=== PATIENT | female | born 1935 | race Caucasian/White ===

== ENCOUNTER 2018-01-03 14:24 | Inpatient (IN) | payer MEDICARE, BC ==
[~2018-01-03] VITALS: Ht 160 cm; Wt 91.2 kg
[~2018-01-03 14:24] MED LIST: ALBUTEROL INH; ALBUTEROL2.5 MG/31 INH; ASPIRIN EC81 M1 PO; AVELOX 400 MG400 MG OR; BACTRIM DS TAB1 EACH PO; CALCIUM 600 +1 EAC1 PO; COZAAR 50 MG TA50 M1 PO; FISH OIL 1,001000 M2 PO; FISHOIL PO; FML 0.1% OP; K-DUR 20 MEQ T20 MEQ PO; LEVAQUIN 500 M500 M2 PO; MEDROLDOSEPACK PO; MIDAMOR 5MG TABL5 M1 PO; MULTIVITAMINS PO; OXYBUTYNIN 5 MG5 M1 PO; SIMVASTATIN40 MG PO; TAMIFLU75 MG PO; VICODIN 5-5001 EACH PO; VITAMIN D-32000 UNIT PO; VITAMIN E400 UNIT PO; VITAMINC500 PO; ZPAK PO
[2018-01-03 14:33] VITALS: BP 179/83
[2018-01-03] MEDS ORDERED: CRESTOR5 MG PO (14:42)
[2018-01-03] MEDS ORDERED: LASIX 20 MG TAB20 MG PO (14:44)
[2018-01-03] MEDS ORDERED: CELEXA10 MG PO (14:44)
[2018-01-03 15:42] LABS: ABSOLUTE EOSINOPHILS 0.1 thou/uL (0.0-0.7); ABSOLUTE LYMPHOCYTES 1.9 thou/uL (0.8-5.3); ABSOLUTE MONOCYTES 0.5 thou/uL (0.0-1.2); ABSOLUTE NEUTROPHILS 3.4 thou/uL (1.6-8.1); BASOPHILS 0.3 %; EOSINOPHILS 1.6 %; HEMATOCRIT 41.8 % (37.0-47.0); HEMOGLOBIN 14.2 gm/dL (12.0-15.0); MCH 31.9 pg (26.0-34.0); MCHC 33.9 g/dL (28.0-37.0); MCV 94.2 fL (80.0-100.0); MONOCYTES 8.7 %; MPV 8.1 fl. (7.2-11.1); NUCLEATED RBCS 0 /100WBC; PLATELET COUNT* 180 thou/uL (150-400); POLYS 57.4 %; RBC 4.44 mil/uL (4.20-5.00); RDW-CV 13.1 % (10.5-14.5)
[2018-01-03 15:51] LABS: APTT 26.1 Seconds (25.0-31.3); INR 1.1; PROTIME 10.7 Seconds (9.20-11.50)
[2018-01-03 15:55] LABS: ANION GAP 6 mmol/L (7-16); BUN 13 mg/dL (7-18); CALCIUM 9.4 mg/dL (8.5-10.1); CHLORIDE 101 mmol/L (98-107); CO2 31 mmol/L (21-32); CREATININE 0.7 mg/dL (0.6-1.3); GLUCOSE 92 mg/dL (70-99); POTASSIUM 3.5 mmol/L (3.5-5.1); SODIUM 138 mmol/L (136-145)
[2018-01-03 16:07] LABS: ALKALINE PHOSPHATASE 57 U/L (46-116); SGOT 31 U/L (15-37); SGPT 25 U/L (30-65); TOTAL BILIRUBIN 0.4 mg/dL (<0.1-1.0); TOTAL PROTEIN 7.9 g/dL (6.4-8.2); TROPONIN-I LEVEL <0.06 ng/mL (<0.06)
[2018-01-03 17:12] LABS: URINE BILIRUBIN NEGATIVE (Negative); URINE BLOOD NEGATIVE (Negative); URINE CLARITY CLEAR; URINE COLOR YELLOW; URINE GLUCOSE-RANDOM NEGATIVE (Negative); URINE KETONES NEGATIVE (Negative); URINE LEUKOCYTES-REFLEX NEGATIVE (Negative); URINE NITRITE-REFLEX NEGATIVE (Negative); URINE PROTEIN NEGATIVE (Negative); URINE UROBILINOGEN 0.2 E.U./dl (0.2-1.0)
[2018-01-03 20:21] VITALS: BP 169/78
[2018-01-03 21:00] VITALS: BP 150/74
[2018-01-04] VITALS: BP 152/68
[2018-01-04 03:31] VITALS: BP 133/62
[2018-01-04 05:21] LABS: ABSOLUTE EOSINOPHILS 0.1 thou/uL (0.0-0.7); ABSOLUTE LYMPHOCYTES 1.7 thou/uL (0.8-5.3); ABSOLUTE MONOCYTES 0.5 thou/uL (0.0-1.2); ABSOLUTE NEUTROPHILS 2.6 thou/uL (1.6-8.1); BASOPHILS 0.5 %; EOSINOPHILS 2.2 %; HEMATOCRIT 41.2 % (37.0-47.0); HEMOGLOBIN 13.9 gm/dL (12.0-15.0); LYMPHOCYTES 33.8 %; MCH 31.9 pg (26.0-34.0); MCHC 33.6 g/dL (28.0-37.0); MCV 94.7 fL (80.0-100.0); MONOCYTES 10.1 %; MPV 8.3 fl. (7.2-11.1); NUCLEATED RBCS 0 /100WBC; PLATELET COUNT* 161 thou/uL (150-400); POLYS 53.4 %; RBC 4.35 mil/uL (4.20-5.00); RDW-CV 13.4 % (10.5-14.5); WBC 4.9 thou/uL (4.0-11.0)
[2018-01-04 05:40] LABS: CALCIUM 8.5 mg/dL (8.5-10.1); CREATININE 0.6 mg/dL (0.6-1.3); POTASSIUM 3.5 mmol/L (3.5-5.1)
[2018-01-04 08:13] VITALS: BP 154/63
[2018-01-04 11:00] VITALS: BP 150/87
[2018-01-04 15:00] VITALS: BP 124/53
[2018-01-04 20:00] VITALS: BP 155/62
--- NOTE | 2018-01-04 20:24 | CON ---
[address] [address] CONSULTATION Name: HALIETAM Room: [address] IN .R.#: [id number] Admission: 01/03/18 Attend Phys: Marcus Flores MD Discharge: Date of : 31 Report #: [id number] THIS REPORT FOR: //name// CC: Marcus Rogersrina Nick DATE OF SERVICE: 01/04/2018 HISTORY OF PRESENT ILLNESS: This is an 82-year-old female patient who was evaluated by me because of an episode of amnesia. She lives by herself. She was at home. She watered her plants. She remember watering some of them, but not the other one. She put her hose back and she does not remember anything about it. She came to herself after a few hours. She was having an accompanying severe headache at that time. She also noticed a bump on her head. All of it has become better. She never had this kind of episode before. REVIEW OF SYSTEMS: Indicates that this patient has a history of some bronchitis. She takes some medication like citalopram, but she does not feel depressed. She denies any history of diabetes or hypertension. She is not complaining of any new visual, ENT, cardiac, respiratory, GI, , musculoskeletal, constitutional, dermatological, hematological, psychiatric, throat or allergic symptom associated with present symptomatology. PAST MEDICAL HISTORY: Negative for this kind of episode. FAMILY HISTORY: Negative for early age stroke. SOCIAL HISTORY: She does not drink alcohol or smoke. PHYSICAL EXAMINATION: Indicate that this patient is alert, responsive, able to follow simple and complex command. Her speech, concentration, fund of knowledge and memory is at her baseline. Cranial nerve examination 2-12 is unremarkable. Strength, sensation, reflexes and tones are symmetrical. There is no cerebellar sign. I could not have a very good look at the patient's fundus. There is no meningeal sign. There is no carotid bruit. She is a reasonably well-developed individual who does not have any dysmorphic features of eyes, ears and face. Her visions and hearing look adequate. Her pulses are palpable. She has no edema, cyanosis or jaundice. Cardiac examination shows no atrial fibrillation. No respiratory difficulty or rhonchi was noticed. She has no thyroid mass. Her blood pressure is 133/62, respiration is 16, pulse is 60, temperature is 98. LABORATORY DATA: Indicate a white count of 4.9 and normal sodium. She did have a CT scan of the head and C-spine, CT scan of the [place] [address] CONSULTATION Name: TAM AMBROSE Radha Room: [address] IN [facility].#: [id number] Admission: 01/03/18 Attend Phys: Marcus Flroes MD Discharge: Date of : 31 Report #: [id number] IMPRESSION: This patient's symptoms are probably secondary to transient global amnesia. History is somewhat unusual because she had headache with it and she had a bump on her head. Because of that, other differentials including concussion or any OPERATIONS ADVISOR pathology need to be considered. I will suggest some further workup in this patient and if that workup is negative, mainly watch her and see if it happens again. I discussed that aspect with this patient and she wants to follow this plan. Her last LDL was high and we will repeat it and see if that needs any treatment, although her HDL was pretty good. RECOMMENDATIONS: 1. MRI. 2. MRA. 3. EEG. 4. Repeat blood workup. 5. Just observe her for the time being, but will suggest putting her on a small dose of aspirin for the time being. Thank you very much for this referral and we will follow this patient along with you. <ELECTRONICALLY SIGNED> By: Rahul Ayala MD 01/04/184 0751 [id number] Ayala MD /nt
[2018-01-05] VITALS: BP 127/51
[2018-01-05 02:51] VITALS: BP 147/53
[2018-01-05 08:45] VITALS: BP 152/77
--- NOTE | 2018-01-05 09:39 | EKG ---
[place] [address] ELECTROCARDIOGRAM REPORT Name: HALIETAM Room: [address] IN [facility]#: [id number] Admission: 01/03/18 Attend Phys: Marcus Flores MD Discharge: Date of : 33 Report #: [id number] THIS REPORT FOR: //name// [facility] ED Test Date: 2018-01-03 Test Time: 15:34:36 Pat Name: TAM AMBROSE Department: Room: Gender: Exhibition Designer: Fred ADEN : 1935 Requested By: Rosalva Herron Order Number: [id number] MD: Eber Erazo Measurements Intervals [place] Rate: 56 P: 46 NC: 158 QRS: 10 QRSD: 99 T: 62 QT: 412 QTc: 398 Interpretive Statements Sinus bradycardia Compared to ECG 04/24/2011 01:12:05 Sinus tachycardia no longer present Electronically Signed On 01-05-2018 9:39:06 CDT by Eber Erazo [email or web address] <ELECTRONICALLY SIGNED> By: Eber Erazo MD, [facility] 01/05/18 0939 153 153 Eber Erazo MD, [facility] /EPI
[2018-01-05 11:00] VITALS: BP 101/65
[2018-01-05 15:57] VITALS: BP 101/65
--- NOTE | 2018-01-05 16:47 | 2DMMODE ---
[place] [address] 2 D/M-MODE ECHOCARDIOGRAM Name: TAM AMBROSE Room: [address] IN [facility]#: [id number] Admission: 01/03/18 Attend Phys: Marcus Flores, Discharge: Date of : 31 Date of Service: 01/05/18 1646 Report #: [id number] THIS REPORT FOR: //name// APPROVED REPORT Study performed: 01/05/2018 16:03:05 EXAM: Comprehensive 2D, Doppler, and color-flow Echocardiogram Patient Location: In-Patient Room #: 230 Status: routine BSA: 1.94 HR: 73 bpm BP: 101/65 mmHg Rhythm: NSR Other Information Study Quality: Good Indications Transient global amnesia 2D Dimensions LVEF(%): 69.65 (>50%) IVSd: 14.07 (7-11mm) LVOT Diam: 20.77 (18-24mm) LVDd: 43.73 mm PWd: 12.65 (7-11mm) Ascending Ao: 37.43 (22-36mm) LVDs: 26.68 (25-40mm) Aortic Root: 34.97 mm Collado's LVEF: 69.65 % Volumes Left Atrial Volume (Systole) LA ESV Index: 30.40 mL/m2 Aortic Valve AoV Peak Grady.: 1.69 m/s AO Peak Gr.: 11.38 mmHg LVOT Max P.73 mmHg AO Mean Gr.: 6.30 mmHg LVOT Mean P.18 mmHg LVOT Max V: 1.09 m/s AO V2 VTI: 30.19 cm LVOT Mean V: 0.67 m/s NIKOS (VTI): 2.44 cm2 LVOT V1 VTI: 21.77 cm AI Yazoo: 2.34 m/s2 AI PHT: 467.82 [place] [address] 2 D/M-MODE ECHOCARDIOGRAM Name: HALIETAM Room: [address] IN [facility].#: [id number] Admission: 01/03/18 Attend Phys: Marcus Flores, Discharge: Date of : 31 Date of Service: 01/05/18 1646 Report #: [id number] Mitral Valve E/A Ratio: 0.55 MV Decel. Time: 252.78 ms MV E Max Grady.: 0.81 m/s MV PHT: 73.31 ms MVA (PHT): 3.00 cm2 TDI E/Lateral E': 4.50 E/Medial E': 10.13 Medial E' Grady.: 0.08 m/s Lateral E' Grady.: 0.18 m/s Pulmonary Valve PV Peak Grady.: 0.89 m/s PV Peak Gr.: 3.16 mmHg Tricuspid Valve TR Peak Gr.: 22.95 mmHg RVSP: 27.00 mmHg Left Ventricle The left ventricle is normal size. There is normal LV segmental wall motion. Mild to moderate concentric left ventricular hypertrophy. Left ventricular systolic function is normal. LVEF is 55-60%. Grade I - abnormal relaxation pattern. Right Ventricle The right ventricle is normal size. The right ventricular systolic function is normal. Atria Left atrium is mildly dilated. The right atrium size is normal. Aortic Valve The aortic valve is normal in structure. Trace aortic regurgitation. There is no aortic valvular stenosis. Mitral Valve The mitral valve is normal in structure. Mild mitral regurgitation. No evidence of mitral valve stenosis. Tricuspid Valve The tricuspid valve is normal in structure. Trace tricuspid regurgitation. The RVSP is ___27____ mmHg. Pulmonic Valve The pulmonary valve is normal in structure[place] [address] 2 D/M-MODE ECHOCARDIOGRAM Name: TAM AMBROSE Radha Room: [address] IN M.R.#: [id number] Admission: 01/03/18 Attend Phys: Marcus Flores, Discharge: Date of : 31 Date of Service: 01/05/18 1646 Report #: [id number] regurgitation. Great Vessels The aortic root is normal in size. IVC is normal in size and collapses with >50% inspiration Pericardium There is no pericardial effusion. <Conclusion> The left ventricle is normal size. Mild to moderate concentric left ventricular hypertrophy. Left ventricular systolic function is normal. LVEF is 55-60%. Grade I - abnormal relaxation pattern. Left atrium is mildly dilated. Trace aortic regurgitation. Mild mitral regurgitation. Trace tricuspid regurgitation. The RVSP is ___27____ mmHg. IVC is normal in size and collapses with >50% inspiration <ELECTRONICALLY SIGNED> By: Clovis Tesfaye MD, FACC 01/05/181645 45 45 Clovis Tesfaye MD, FACC /INF
--- NOTE | 2018-01-13 12:20 | EEG ---
[address] [address] EEG STUDY REPORT Name: TAM AMBROSE Radha Room: [address] IN .R.#: [id number] Admission: 01/03/18 Attend Phys: Marcus Flores MD Discharge: 01/05/18 Date of : 33 Report #: [id number] THIS REPORT FOR: //name// CC: Marcus Mossa Nick DATE OF SERVICE: 01/04/2018 This patient is being evaluated for an episode of amnesia. EEG was done by placing the electrodes by standard 10-20 system of electrode placement. Both referential and sequential montages were used for recording. Background activity in this patient's EEG is about 10 Hz and 30 microvolts. This was a symmetrical activity. Photic stimulation was unremarkable. This patient went to sleep and that is associated with bilateral slowing and vertex sharp waves. Throughout the record, no active epileptiform activity was noticed. IMPRESSION: This patient's EEG is within normal limit. Thank you very much for this referral. <ELECTRONICALLY SIGNED> By: Rahul Ayala MD 01/13/18 1220 1518 1522Pjaqui Ayala MD /nt
== END 2018-01-05 16:03 | disposition home or self-care (01) | DRG 70 ==
LOC: M.ERS 14:24 → M.2W 17:33 → M.TBA-ER 17:33 → M.2W 20:19
PROVIDERS: Personal Emergency Response Attendant; ADMIT Internal Medicine
DX: G45.4 Transient global amnesia (principal); G93.40 Encephalopathy, unspecified; S00.93XA Contusion of unspecified part of head, initial encounter; Z96.1 Presence of intraocular lens; I10 Essential (primary) hypertension; M19.90 Unspecified osteoarthritis, unspecified site; E86.0 Dehydration; W18.30XA Fall on same level, unspecified, initial encounter; Z88.8 Allergy status to other drugs, medicaments and biological substances; Z88.0 Allergy status to penicillin; Z79.899 Other long term (current) drug therapy; Z79.82 Long term (current) use of aspirin; Z90.49 Acquired absence of other specified parts of digestive tract; Z90.89 Acquired absence of other organs; Z90.710 Acquired absence of both cervix and uterus; Z98.42 Cataract extraction status, left eye; Y93.14 Activity, water aerobics and water exercise; Y92.89 Other specified places as the place of occurrence of the external cause; Y99.8 Other external cause status

== ENCOUNTER → 2018-03-10 | Outpatient (CLI) | payer MEDICARE, BC ==
[~2018-03-10] MED LIST changes: +CELEXA10 MG PO; +CRESTOR5 MG PO; +LASIX 20 MG TAB20 MG PO
== END ==
LOC: M.RAD 03-08 13:00
DX: Z12.31 Encounter for screening mammogram for malignant neoplasm of breast (principal); I10 Essential (primary) hypertension

== ENCOUNTER 2019-07-13 14:42 | Emergency (ER) | payer MEDICARE, BC ==
[~2019-07-13] VITALS: Ht 152.4 cm; Wt 88.0 kg
[2019-07-13] MEDS ORDERED: FUROSEMIDE 20 M20 MG PO (15:11)
[2019-07-13] MEDS ORDERED: FENOFIBRATE160 MG PO (15:12)
[2019-07-13] MEDS ORDERED: TYLENOL ARTHRI650 MG PO (15:13)
[2019-07-13] MEDS ORDERED: MELOXICAM15 MG PO (15:13)
[2019-07-13 15:46] LABS: POTASSIUM 3.9 mmol/L (3.5-5.1)
[2019-07-13 15:53] LABS: ALBUMIN 3.9 g/dL (3.4-5.0); TOTAL BILIRUBIN 0.2 mg/dL (<0.1-1.0); TOTAL PROTEIN 7.3 g/dL (6.4-8.2)
[2019-07-13 16:05] LABS: ABSOLUTE LYMPHOCYTES 1.5 thou/uL (0.8-5.3); ABSOLUTE MONOCYTES 0.5 thou/uL (0.0-1.2); ABSOLUTE NEUTROPHILS 2.5 thou/uL (1.6-8.1); BASOPHILS 0.7 %; HEMATOCRIT 36.9 % (37.0-47.0); HEMOGLOBIN 12.6 gm/dL (12.0-15.0); LYMPHOCYTES 33.1 %; MCHC 34.2 g/dL (28.0-37.0); MCV 93.6 fL (80.0-100.0); MONOCYTES 10.9 %; MPV 8.6 fl. (7.2-11.1); NUCLEATED RBCS 0 /100WBC; PLATELET COUNT* 233 thou/uL (150-400); POLYS 54.3 %; RBC 3.94 mil/uL (4.20-5.00); RDW-CV 13.1 % (10.5-14.5); WBC 4.6 thou/uL (4.0-11.0)
[2019-07-13 16:08] LABS: URINE BILIRUBIN NEGATIVE (Negative); URINE BLOOD NEGATIVE (Negative); URINE CLARITY CLEAR; URINE COLOR YELLOW; URINE GLUCOSE-RANDOM NEGATIVE (Negative); URINE KETONES NEGATIVE (Negative); URINE LEUKOCYTES-REFLEX NEGATIVE (Negative); URINE NITRITE-REFLEX NEGATIVE (Negative); URINE PROTEIN NEGATIVE (Negative); URINE UROBILINOGEN 0.2 E.U./dl (0.2-1.0)
[2019-07-13] MEDS ORDERED: TYLENOL WITH CO1 TA1 PO (16:17)
[2019-07-13 16:58] VITALS: BP 179/75
--- NOTE | 2019-07-14 15:50 | EKG ---
[place] [address] ELECTROCARDIOGRAM REPORT Name: HALIETAM Room: [facility]#: [id number] Admission: 07/13/19 Attend Phys: Discharge: 07/13/19 Date of : 31 Report #: [id number] THIS REPORT FOR: //name// [facility] ED Test Date: 2019-07-13 Test Time: 16:47:35 Pat Name: TAM AMBROSE Department: Room: Gender: F Fish Trapper: : 1935 Requested By: Rhonda Jimenes Order Number: [id number] : Andre Philip Measurements Intervals [place] Rate: 66 P: 65 DC: 159 QRS: 25 QRSD: 100 T: 33 QT: 402 QTc: 422 Interpretive Statements Sinus rhythm Compared to ECG 01/03/2018 15:34:36 Sinus bradycardia no longer present Electronically Signed On 07-14-2019 15:49:49 ORAL THERAPIST by Andre Philip [email or web address] <ELECTRONICALLY SIGNED> By: Andre Philip MD, [facility] 07/14/19 1549 1647 1647 Andre Philip MD, FACC /EPI
[2019-07-19] MEDS ORDERED: NORCO 5-325 TA1 EAC1 PO (15:42)
== END 2019-07-13 16:58 | disposition home or self-care (01) ==
LOC: M.ERS 14:42
PROVIDERS: Physician Assistant
DX: S52.591A Other fractures of lower end of right radius, initial encounter for closed fracture (principal); I10 Essential (primary) hypertension; Z90.49 Acquired absence of other specified parts of digestive tract; Z90.710 Acquired absence of both cervix and uterus; Z88.0 Allergy status to penicillin; Z88.8 Allergy status to other drugs, medicaments and biological substances; W18.39XA Other fall on same level, initial encounter; Y93.89 Activity, other specified; Y92.89 Other specified places as the place of occurrence of the external cause; Y99.8 Other external cause status

== ENCOUNTER → 2019-07-19 | Day surgery (SDC) | payer MEDICARE, BC ==
[~2019-07-19] MED LIST changes: +FENOFIBRATE160 MG PO; +FUROSEMIDE 20 M20 MG PO; +MELOXICAM15 MG PO; +NORCO 5-325 TA1 EAC1 PO; +TYLENOL ARTHRI650 MG PO; +TYLENOL WITH CO1 TA1 PO
--- NOTE | 2019-07-25 18:53 | OP ---
[address] [address] OPERATIVE REPORT Name: TAM AMBROSE Room: [facility]#: [id number] Admission: 07/19/19 Attend Phys: Gael Garza DO Discharge: Date of : 33 Report #: [id number] THIS REPORT FOR: //name// CC: Gael Romero PREOPERATIVE DIAGNOSIS: Right intraarticular distal radius fracture. POSTOPERATIVE DIAGNOSIS: Right intraarticular distal radius fracture. PROCEDURE: Open reduction and internal fixation, right distal radius fracture, intraarticular greater than 3-part. SURGEON: Gael Garza DO FRENCH EDGE OPERATOR: Shashi Crandall DO ANESTHESIA: General. ANTIBIOTICS: Clindamycin IV preoperatively. FLUIDS: 1100 mL of lactated Ringer's. BLOOD LOSS: 25 mL. COMPLICATIONS: None. SPECIMENS: None. DRAINS: None. CONDITION OF PATIENT: Stable to PACU. IMPLANTS: Adelaide volar locking distal radius plate with cortical screws proximally and locking screws distally. INDICATIONS FOR PROCEDURE: The patient sustained a distal radius fracture, originally Dr. Qiu is my partner on-call who referred this case to me due to its complexity, saw her in clinic today, talked about what her treatment options were reviewing the spectrum from nonoperative to operative. She ultimately wished to have surgery. I went over with her risks and complications not only then, but also in the preoperative area as well. We see clinic note for full details of discussion at both times. She gave consent to proceed, acknowledging and accepting the risks and complications. DESCRIPTION OF PROCEDURE: I marked the right upper extremity in the presence of the operative team members. Everyone agreed this was [place] [id number] OPERATIVE REPORT Name: TAM AMBROSE Room: [facility]#: [id number] Admission: 07/19/19 Attend Phys: Gael Garza DO Discharge: Date of : 31 Report #: [id number] back to the operative suite where a briefing was performed indicating correct patient, procedure, site, antibiotics and that implants were present and sterile. All team members agreed. She was transferred to the operative table in supine position, well-padded and secured. General anesthetic administered. A well-padded tourniquet was placed proximally on the right upper extremity, which was then sterilely prepped and draped in standard fashion. Timeout was performed indicating correct patient, procedure, site, antibiotics and that implants were present and sterile. All team members agreed. We had marked out our incision for a modified volar Delfino approach. Esmarched the extremity and insufflated the tourniquet to 250 mmHg. Scalpel through skin, blunt dissection to the FCR tendon, incised this proximally and distally along the sheath. All structures were taken ulnarly with the exception of the radial artery, which was found and protected throughout the entirety of the case. After incising the FPL muscle belly fascia down to the quadratus and again taken ulnarly after incising off. Visualized our fracture fragments, comminuted Onofre's type fracture, intraarticular with greater than 3 fragments, we were able to reduce this, pin into position, buttress it with our plate in that plate into position and checked on multiplanar C-arm imaging that was appropriate. We placed cortical screws proximally and locking screws distally, making sure that we subtracted a couple of millimeters from our measurement so as not to be proud. All hardware in place, we removed the provisional fixation and pins. Final intraoperative C-arm images showed excellent reduction and hindu of articular surface, placement of all hardware, saved images and dismissed C-arm. There was no block to range of motion, and range of motion was full and stable, was confirmed under live fluoroscopy. We let down tourniquet. Total time was 33 minutes, maintained hemostasis. No injury in the radial artery. Hand was warm and well perfused and palpable radial artery. Pulse irrigated thoroughly with normal saline and closed with 3-0 Monocryl buried deep and a running 3-0 nylon suture. Debriefing performed where we confirmed procedure, blood loss and that all counts were correct and final. All team members agreed. She was placed into a sterile splint, extubated and taken to PACU in stable. POSTOPERATIVE COURSE AND EVALUATION: I spoke with her daughter per her wishes and addressed any questions she had. She was thankful for my time and efforts. The patient was resting in PACU with stable vital signs, pain controlled, neurovascularly intact and then functioning appropriately. She was discharged home when she is stable. Pain medication to be taken as directed. DVT prophylaxis will be pharmacological and mechanical until instructed otherwise. Maintain splint clean, dry and intact. I encouraged range of motion throughout the joints that were instructed, also encouraged to call with any questions or concerns. <ELECTRONICALLY SIGNED> By: Gael Garza DO 07/25/19 185 01 58Gael Garza DO /nt
== END | disposition home or self-care (01) ==
LOC: M.SUR 06:29
DX: S52.571A Other intraarticular fracture of lower end of right radius, initial encounter for closed fracture (principal); Z98.890 Other specified postprocedural states; Z79.899 Other long term (current) drug therapy; Z88.0 Allergy status to penicillin; X58.XXXA Exposure to other specified factors, initial encounter; Y93.89 Activity, other specified; Y92.89 Other specified places as the place of occurrence of the external cause; Y99.8 Other external cause status